=== PATIENT | male | born 1985 | race Two or more races ===

== ENCOUNTER 2024-06-09 11:29 | Emergency (ER) | payer MEDICAID, SELFPAY ==
[2024-06-09 11:30] VITALS: BMI 24.6
[2024-06-09 11:33] VITALS: PULSE 94; RESP 19; TEMP 36.9; O2SAT 98
--- NOTE | 2024-06-09 11:56 | PD.EDADULT ---
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 Patient is still looking for a new PCP due to problem with insurance. Patient is taking levothyroxine, 50 mcg tablet daily, phenytoin, extended release, 100 mg twice a day, phenobarbital 32.4 mg twice a day. Denies any other complaints. Related Data Previous Rx's ?Medication ?Instructions ?Recorded levothyroxine 50 mcg capsule 50 mcg PO QDAY #30 caps 06/09/24 phenobarbital 32.4 mg tablet 32.4 mg PO BID #60 tabs 06/09/24 phenytoin sodium extended 100 mg 100 mg PO BID #60 caps 06/09/24 capsule Allergies Allergy/AdvReac Type Severity Reaction Status Date / Time No Known Allergies Allergy Verified 06/09/24 11:33 Review of Systems Review of Systems Narrative Review of Systems: Review of system reviewed and within normal limits except mentioned in HPI ED Exam Narrative Physical exam: VITAL SIGNS: Reviewed. GENERAL APPEARANCE: Alert and good eye contact, does not, follows commands, no acute distress, nonverbal HEAD AND FACE: Non-traumatic. ENT: PERRL, pink conjunctivitis, eyelid no trauma, Mucous membrane moist. NECK: Supple, nontender, no nuchal rigidity. CHEST: No tenderness, no crepitus, no paradoxical movement, no retractions. LUNGS: Clear, well ventilated, symmetric, no rales, no wheezing, no ronchi, no stridor, good breath sounds bilaterally. HEART: Regular rate, regular rhythm, no murmur, no gallops. ABDOMEN: Soft, positive bowel sounds, nondistended, no guarding, nontender, no rebound, no masses, RECTAL: Deferred. GENITAL: Deferred. NEUROLOGICAL: Gross motor function intact sensory function intact, Appropriate for age. MUSCULOSKELETAL: low back nontender, full range of motion. EXTREMITIES: Nontender, full range of motion. SKIN: Color pink, dry, no rash, no lacerations, no abrasions, no contusions. LYMPHATICS: Deferred. Course Quality Measures none Vital Signs Vital signs: Vital Signs Temperature 98.4 F 06/09/24 11:33 Pulse Rate 94 06/09/24 11:33 Respiratory Rate 19 06/09/24 11:33 Pulse Oximetry (%) 98 06/09/24 11:33 Oxygen Delivery Method Room Air 06/09/24 11:33 MDM Patient data External records reviewed:: None Clinical information provided by:: family Social determinants that could affect healthcare access:: none Patient has the following chronic illnesses:: Traumatic brain injury, seizure disorder, developmental delay How is presenting disease/condition affected by chronic disease/condition?: exacerbated by Evaluation data The following diagnostics were reviewed and interpreted by me:: other (specify) (None) Lab and/or radiology exams considered but not ordered:: None Interpretation Summary: None Medications Medications considered but not ordered:: None Medication administrations:: None Consultations Consultation(s) initiated? (list below): No Consultation #1 (Physician, Specialty, Details): None Consultation #2 (Physician, Specialty, Details): None Diagnosis Differential Diagnosis ED Complaint MDM: Refill of medication, history of seizure disorder, history of traumatic bra Most likely diagnosis given after review of the tests above:: Refill of medication Admission Indicated Admission indicated?: not indicated Explain why admission is indicated or not indicated:: Stable Admission Request Was there a request for admission?: No Disposition Plan Disposition Plan: Discharge Discharge Attestation Discharge Attestation: The patient and all family members were given an opportunity to ask questions and understood the discharge instructions. Discharge instructions specifically effects, indications for sooner follow up or return to the emergency department, and the expected course of current diagnosis. 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 Patient is still looking for a new PCP due to problem with insurance. Patient is taking levothyroxine, 50 mcg tablet daily, phenytoin, extended release, 100 mg twice a day, phenobarbital 32.4 mg twice a day. Denies any other complaints. Laboratory workup is not needed at this time. Patient was given refill of medication for his phenobarbital, phenytoin, and levothyroxine Differential Diagnosis Differential Diagnosis: Refill of medication, history of seizure disorder, history of traumatic bra Discharge Plan Plan Patient Disposition: HOME (Self Care) Disposition Comment: stable Prescriptions/Referrals Prescriptions/Med Rec: New levothyroxine 50 mcg capsule 50 mcg PO QDAY Qty: 30 0RF phenytoin sodium extended 100 mg capsule 100 mg PO BID Qty: 60 0RF phenobarbital 32.4 mg tablet 32.4 mg PO BID Qty: 60 0RF Problem List Clinical Impression: Encounter for medication refill Patient/Caregiver Discharge Instructions Education Materials: ED Seizure, Recurrent (Child) Additional Instructions: Thank you for the opportunity for serving you today. You are stable for discharged . You are advised to: Follow-up with your PCP in 1 to 2 days Return to ED for worsening of symptoms Increase oral fluids Take medication as prescribed Print Language: Sami Stand Alone Forms: Darya Award Info., Patient Portal Info Letter PA/CHAPLAIN RESIDENT Supervising Physician PA/ALEXEY Supervising Physician: Dr Ortez
== END 2024-06-09 12:30 | disposition home or self-care (01) ==
LOC: SERX 12:05
PROVIDERS: Emergency Provider Emergency Medicine
DX: Z76.0 Encounter for issue of repeat prescription (principal)
CPT/HCPCS: 99281